=== PATIENT | male | born 1940 | race African-American/Black ===

== ENCOUNTER 2019-06-23 18:04 | Inpatient (IN) | payer MEDICARE, MEDICAID ==
[~2019-06-23] VITALS: Ht 172.7 cm; Wt 57.2 kg
[2019-06-23] MEDS ORDERED: SODIUM CHLORIDE 0.9% 1,000 ML IV ONE (18:27)
[2019-06-23 18:55] LABS: BASOPHILS % 0.3 % (0.0-2.0); EOSINOPHILS % 0.4 % (0.0-5.0); HEMATOCRIT. 38.6 % (42.0-52.0); HEMOGLOBIN. 12.5 g/dL (14.0-18.0); LYMPHOCYTES % 11.5 % (20.0-50.0); MEAN CORPUSCULAR VOLUME 79.8 fL (80.0-94.0); MEAN PLATELET VOLUME 7.6 fl (7.4-10.4); MONOCYTES % 8.8 % (2.0-8.0); PLATELET 284 x1000/uL (130-400); RED BLOOD CELL COUNT 4.83 mill/uL (4.7-6.1); RED CELL DISTRIBUTION WIDTH 19.3 % (11.6-14.6)
[2019-06-23 19:00] LABS: CHLORIDE 107 mEq/L (98-107)
[2019-06-23 19:01] LABS: PROTHROMBIN TIME 10.9 sec (9.6-11.0)
[2019-06-23 19:36] LABS: CLARITY URINE CLEAR (CLEAR); COLOR URINE YELLOW (YELLOW); KETONES URINE NEGATIVE (NEGATIVE); LEUKOCYTE ESTERASE URINE 1+ (NEGATIVE); NITRITE URINE NEGATIVE (NEGATIVE); OCCULT BLOOD URINE 3+ (NEGATIVE); PH URINE 5.5 (4.5-8.0); PROTEIN URINE 1+ (NEGATIVE); SPECIFIC GRAVITY URINE 1.014 (1.005-1.030); UROBILINOGEN URINE 0.2 E.U./dL (0.2-1.0)
[2019-06-23] MEDS ORDERED: CEFTRIAXONE 1 G PREMIX 50 ML IV ONE (20:00)
[2019-06-24] VITALS (7 sets, daily range): BP systolic 104–145; BP diastolic 70–85
[2019-06-24] MEDS: SODIUM CHLORIDE 0.45% 1,000 ML IV SCH (00:18)
[2019-06-24] MEDS ORDERED: HYDRALAZINE 20MG/ML VIAL IV PRN (00:30)
[2019-06-24] MEDS ORDERED: CEFTRIAXONE 1 G PREMIX 50 ML IV SCH (00:30)
[2019-06-24] MEDS ORDERED: ACETAMINOPHEN 325MG TABLET PO PRN (00:30)
[2019-06-24] MEDS ORDERED: IPRATROPIUM/ALBUTEROL 0.5-3(2.5)MG/3ML NEB HHN PRN (00:30)
[2019-06-24] MEDS ORDERED: HYDROCODONE/ACETAMINOPHEN 10/325MG TABLET PO PRN (00:30)
[2019-06-24] MEDS ORDERED: ONDANSETRON HCL 4MG/2ML INJ IV PRN (00:30)
[2019-06-24] MEDS ORDERED: LORAZEPAM 2MG/ML CPJ IV PRN (00:30)
[2019-06-24] MEDS ORDERED: MAGNESIUM/ALUMINUM HYDROXIDE/SIMETHICONE 30ML UDC PO PRN (00:30)
[2019-06-24] MEDS ORDERED: DIPHENHYDRAMINE 50MG/ML VIAL IV PRN (00:30)
[2019-06-24] MEDS ORDERED: DOCUSATE SODIUM 100MG CAPSULE PO PRN (00:30)
[2019-06-24 02:06] LABS: HEPATITIS B SURFACE ANTIGEN NEGATIVE
[2019-06-24] MEDS ORDERED: MORPHINE SULFATE 2 MG/ML CPJ (NOT FOR IM USE) IV PRN (06:17)
[2019-06-24] MEDS: SODIUM CHLORIDE 0.9% INJ 3ML FLUSH IVF SCH ×3 (06:45→21:54)
[2019-06-24] MEDS: ENOXAPARIN 40MG/0.4ML SYR SUBCUT SCH (09:00)
[2019-06-24 10:07] LABS: CREATINE KINASE MB FRACTION 4.2 ng/mL (0.5-3.6)
[2019-06-24 18:16] LABS: CREATINE KINASE MB FRACTION 3.2 ng/mL (0.5-3.6)
[2019-06-24] MEDS: CEFTRIAXONE 1 G PREMIX 50 ML IV SCH (21:54)
[2019-06-25] VITALS: BP 126/73
[2019-06-25 00:41] LABS: *AMPHETAMINES SCREEN URINE NEGATIVE (NEGATIVE); *BARBITURATES SCREEN URINE NEGATIVE (NEGATIVE); *BENZODIAZEPINES SCREEN URINE PRESUMTIVE POSITIVE (NEGATIVE)
[2019-06-25 00:42] LABS: *COCAINE SCREEN URINE NEGATIVE (NEGATIVE); CANNABINOID URINE SCREEN NEGATIVE (NEGATIVE); METHADONE URINE SCREEN NEGATIVE (NEGATIVE); PHENCYCLIDINE URINE SCREEN NEGATIVE (NEGATIVE)
[2019-06-25] MEDS: SODIUM CHLORIDE 0.45% 1,000 ML IV SCH (00:51)
[2019-06-25 04:00] VITALS: BP 126/74
[2019-06-25] MEDS: SODIUM CHLORIDE 0.9% INJ 3ML FLUSH IVF SCH ×3 (05:51→20:20)
[2019-06-25 07:18] LABS: BASOPHILS % 1.3 % (0.0-2.0); EOSINOPHILS % 3.4 % (0.0-5.0); HEMATOCRIT. 35.6 % (42.0-52.0); HEMOGLOBIN. 11.8 g/dL (14.0-18.0); LYMPHOCYTES % 24.3 % (20.0-50.0); MEAN CORPUSCULAR HEMOGLOBIN 26.4 pg (28.0-32.0); MEAN CORPUSCULAR VOLUME 79.4 fL (80.0-94.0); MONOCYTES % 11.5 % (2.0-8.0); NEUTROPHILS % 59.5 % (40.0-76.0); PLATELET 273 x1000/uL (130-400); RED BLOOD CELL COUNT 4.48 mill/uL (4.7-6.1); RED CELL DISTRIBUTION WIDTH 19.3 % (11.6-14.6)
[2019-06-25 07:34] LABS: CHLORIDE 109 mEq/L (98-107)
[2019-06-25 07:41] LABS: VITAMIN B12 SERUM 970 pg/mL (211-911)
[2019-06-25 08:00] VITALS: BP 155/77
[2019-06-25] MEDS: ENOXAPARIN 40MG/0.4ML SYR SUBCUT SCH (09:52)
[2019-06-25 12:00] VITALS: BP 151/72
[2019-06-25 16:00] VITALS: BP 136/73
[2019-06-25 20:00] VITALS: BP 144/68
[2019-06-25] MEDS: GUAIFENESIN 200MG/10ML SUGAR FREE UDC PO PRN ×2 (20:20→20:28)
[2019-06-25] MEDS: CEFTRIAXONE 1 G PREMIX 50 ML IV SCH (20:20)
[2019-06-26] VITALS (8 sets, daily range): BP systolic 119–179; BP diastolic 68–97
[2019-06-26] MEDS: CLONIDINE 0.1MG TABLET PO PRN ×3 (00:20→20:40)
[2019-06-26] MEDS: SODIUM CHLORIDE 0.9% INJ 3ML FLUSH IVF SCH ×3 (04:34→20:40)
[2019-06-26] MEDS: SODIUM CHLORIDE 0.45% 1,000 ML IV SCH (04:34)
[2019-06-26 05:30] LABS: BASOPHILS % 1.2 % (0.0-2.0); EOSINOPHILS % 3.4 % (0.0-5.0); HEMATOCRIT. 36.1 % (42.0-52.0); HEMOGLOBIN. 12.3 g/dL (14.0-18.0); LYMPHOCYTES % 20.3 % (20.0-50.0); MEAN CORPUSCULAR HEMOGLOBIN 27.1 pg (28.0-32.0); MEAN CORPUSCULAR VOLUME 79.3 fL (80.0-94.0); MEAN PLATELET VOLUME 8.1 fl (7.4-10.4); MONOCYTES % 11.2 % (2.0-8.0); NEUTROPHILS % 63.9 % (40.0-76.0); PLATELET 269 x1000/uL (130-400); RED BLOOD CELL COUNT 4.55 mill/uL (4.7-6.1); RED CELL DISTRIBUTION WIDTH 19.3 % (11.6-14.6)
[2019-06-26] MEDS: ENOXAPARIN 40MG/0.4ML SYR SUBCUT SCH (08:23)
[2019-06-26] MEDS: GUAIFENESIN 200MG/10ML SUGAR FREE UDC PO PRN (20:39)
[2019-06-26] MEDS: CEFTRIAXONE 1 G PREMIX 50 ML IV SCH (20:40)
[2019-06-26] MEDS: LORAZEPAM 1MG TABLET PO PRN (20:40)
[2019-06-27] VITALS: BP 116/74
[2019-06-27] MEDS: SODIUM CHLORIDE 0.45% 1,000 ML IV SCH (00:18)
[2019-06-27 04:00] VITALS: BP 146/73
[2019-06-27] MEDS: SODIUM CHLORIDE 0.9% INJ 3ML FLUSH IVF SCH ×2 (05:58→14:00)
[2019-06-27 08:00] VITALS: BP 128/90
[2019-06-27] MEDS: ENOXAPARIN 40MG/0.4ML SYR SUBCUT SCH (09:14)
[2019-06-27 12:00] VITALS: BP 111/78
[2019-06-27 16:00] VITALS: BP 115/52
[2019-06-27] MEDS: LORAZEPAM 1MG TABLET PO PRN (17:06)
[2019-06-27 20:00] VITALS: BP 152/75
[2019-06-28] VITALS: BP 130/64
[2019-06-28] MEDS: CEFTRIAXONE 1 G PREMIX 50 ML IV SCH ×2 (00:33→22:02)
[2019-06-28] MEDS: SODIUM CHLORIDE 0.9% INJ 3ML FLUSH IVF SCH ×4 (00:33→22:03)
[2019-06-28] MEDS: SODIUM CHLORIDE 0.45% 1,000 ML IV SCH (00:34)
[2019-06-28 08:00] VITALS: BP 131/78
[2019-06-28] MEDS: ENOXAPARIN 40MG/0.4ML SYR SUBCUT SCH (08:48)
[2019-06-28 09:12] LABS: OPIATES URINE SCREEN NEGATIVE (NEGATIVE)
[2019-06-28 12:00] VITALS: BP 128/84
[2019-06-28 16:00] VITALS: BP 147/78
[2019-06-28 20:00] VITALS: BP 139/78
[2019-06-29] VITALS: BP 138/72
[2019-06-29] MEDS: SODIUM CHLORIDE 0.45% 1,000 ML IV SCH (01:54)
[2019-06-29 04:00] VITALS: BP 147/68
[2019-06-29] MEDS: SODIUM CHLORIDE 0.9% INJ 3ML FLUSH IVF SCH (06:52)
[2019-06-29 08:00] VITALS: BP 138/72
[2019-06-29] MEDS: ENOXAPARIN 40MG/0.4ML SYR SUBCUT SCH (09:34)
[2019-06-29 12:00] VITALS: BP 126/55
[2019-06-29 13:15] VITALS: BP 126/55
== END 2019-06-29 14:10 | DRG 463 ==
LOC: EDBD 18:04 → ER 18:04 → EDBEDREQ 18:32 → 5WST 20:51 → EDBEDREQ 20:57 → EDBEDREQSVC 20:57 → EDBEDREQTM 20:57 → ENRESERV 06-24 03:51
PROVIDERS: ADMIT Internal Medicine; ATTEND Internal Medicine
DX: N39.0 Urinary tract infection, site not specified (principal); N17.0 Acute kidney failure with tubular necrosis; G93.40 Encephalopathy, unspecified; E86.0 Dehydration; E44.1 Mild protein-calorie malnutrition; F17.210 Nicotine dependence, cigarettes, uncomplicated; Z60.2 Problems related to living alone; I10 Essential (primary) hypertension; Z95.0 Presence of cardiac pacemaker; Z68.1 Body mass index [BMI] 19.9 or less, adult
CPT/HCPCS: 36415; 71045; 80048; 80053; 80061; 80305; 81003; 82550; 82553; 82607; 83036; 83880; 84439; 84443; 84484; 85025; 85379; 92610; 93005; 93306; 93970; 97116; 97162; 97166; 99285; J0360; J0696; J1200; J1650; J2060; J7030

== ENCOUNTER 2020-10-05 23:48 | Inpatient (IN) | payer MEDICARE, MEDICAID ==
[~2020-10-05] VITALS: Ht 177.8 cm; Wt 62.3 kg
[2020-10-06] VITALS (43 sets, daily range): BP systolic 118–184; BP diastolic 58–101
[2020-10-06] MEDS ORDERED: SODIUM CHLORIDE 0.9% 1,000 ML IV ONE ×2 (00:15→03:00)
[2020-10-06 00:54] LABS: CHLORIDE 111 mEq/L (98-107)
[2020-10-06 00:58] LABS: INR 1.1; PARTIAL THROMBOPLASTIN TIME 26.5 sec (23.4-31.0); PROTHROMBIN TIME 11.3 sec (9.6-11.0)
[2020-10-06 01:08] LABS: BASOPHILS % 0.9 % (0.0-2.0); EOSINOPHILS % 2.3 % (0.0-5.0); HEMATOCRIT. 36.5 % (42.0-52.0); HEMOGLOBIN. 11.4 g/dL (14.0-18.0); LYMPHOCYTES % 29.6 % (20.0-50.0); MEAN CORPUSCULAR HEMOGLOBIN 22.9 pg (28.0-32.0); MEAN CORPUSCULAR VOLUME 73.4 fL (80.0-94.0); MONOCYTES % 8.4 % (2.0-8.0); NEUTROPHILS % 58.8 % (40.0-76.0); PLATELET 215 x1000/uL (130-400); RED BLOOD CELL COUNT 4.98 mill/uL (4.7-6.1)
[2020-10-06 04:00] LABS: CLARITY URINE CLEAR (CLEAR); COLOR URINE YELLOW (YELLOW); KETONES URINE NEGATIVE (NEGATIVE); LEUKOCYTE ESTERASE URINE 1+ (NEGATIVE); NITRITE URINE NEGATIVE (NEGATIVE); OCCULT BLOOD URINE 2+ (NEGATIVE); PROTEIN URINE 1+ (NEGATIVE); SPECIFIC GRAVITY URINE 1.016 (1.005-1.030); UROBILINOGEN URINE 0.2 E.U./dL (0.2-1.0)
[2020-10-06] MEDS: DEXT 5%/0.45% NACL 1000ML 1,000 ML IV SCH (08:23)
[2020-10-06] MEDS ORDERED: ONDANSETRON HCL 4MG/2ML INJ IV PRN ×2 (09:00)
[2020-10-06] MEDS: PANTOPRAZOLE 80 MG in SODIUM CHLORIDE 0.9% 100 ML IV SCH ×2 (09:33→18:52)
[2020-10-06 12:34] LABS: HEMATOCRIT 33.5 % (42.0-52.0); HEMOGLOBIN 10.9 g/dL (14.0-18.0)
[2020-10-06] MEDS: HYDRALAZINE 20MG/ML VIAL IV PRN (18:53)
[2020-10-06] MEDS: TAMSULOSIN HCL 0.4MG SR CAPSULE PO SCH (18:53)
[2020-10-06 19:20] LABS: HEMOGLOBIN 10.8 g/dL (14.0-18.0)
[2020-10-06] MEDS: LORAZEPAM 2MG/ML CPJ IV PRN (22:53)
[2020-10-06] MEDS ORDERED: ENALAPRIL 2.5MG/2ML VIAL 2ML IV PRN (23:00)
[2020-10-07] VITALS (40 sets, daily range): BP systolic 114–172; BP diastolic 55–101
[2020-10-07] MEDS: DEXT 5%/0.45% NACL 1000ML 1,000 ML IV SCH ×3 (01:04→22:43)
[2020-10-07 01:16] LABS: HEMATOCRIT 29.7 % (42.0-52.0); HEMOGLOBIN 9.8 g/dL (14.0-18.0)
[2020-10-07] MEDS: HYDRALAZINE 20MG/ML VIAL IV PRN ×2 (01:36→19:35)
[2020-10-07 04:39] LABS: HEMATOCRIT 29.3 % (42.0-52.0); HEMOGLOBIN 9.7 g/dL (14.0-18.0)
[2020-10-07 04:42] LABS: TOTAL IRON BINDING CAPACITY 386 ug/dL (250-450)
[2020-10-07 04:52] LABS: FOLIC ACID (FOLATE) SERUM 14.5 ng/mL (>5.38)
[2020-10-07] MEDS: PANTOPRAZOLE 80 MG in SODIUM CHLORIDE 0.9% 100 ML IV SCH (06:00)
[2020-10-07] MEDS ORDERED: ENALAPRIL 1.25MG/ML VIAL 1ML IV PRN (07:42)
[2020-10-07] MEDS: TAMSULOSIN HCL 0.4MG SR CAPSULE PO SCH (09:29)
[2020-10-07 12:30] LABS: HEMATOCRIT 29.5 % (42.0-52.0); HEMOGLOBIN 9.6 g/dL (14.0-18.0)
[2020-10-07] MEDS: LORAZEPAM 2MG/ML CPJ IV PRN (12:46)
[2020-10-07 13:14] LABS: CHLORIDE 111 mEq/L (98-107)
[2020-10-07 13:18] LABS: BASOPHILS % 0.2 % (0.0-2.0); EOSINOPHILS % 0.4 % (0.0-5.0); HEMATOCRIT. 29.6 % (42.0-52.0); HEMOGLOBIN. 9.6 g/dL (14.0-18.0); LYMPHOCYTES % 8.6 % (20.0-50.0); MEAN CORPUSCULAR HEMOGLOBIN 24.8 pg (28.0-32.0); MEAN CORPUSCULAR VOLUME 76.7 fL (80.0-94.0); MEAN PLATELET VOLUME 9.1 fl (7.4-10.4); MONOCYTES % 7.7 % (2.0-8.0); NEUTROPHILS % 83.1 % (40.0-76.0); PLATELET 147 x1000/uL (130-400); RED BLOOD CELL COUNT 3.86 mill/uL (4.7-6.1); RED CELL DISTRIBUTION WIDTH 20.3 % (11.6-14.6)
[2020-10-07] MEDS: BISACODYL 5MG TABLET PO SCH ×3 (15:09→22:10)
[2020-10-07] MEDS: METOCLOPRAMIDE HCL 10MG/2ML VIAL IV SCH ×3 (15:09→22:10)
[2020-10-07] MEDS: SORBITOL 70% SOLN 30ML PO SCH ×3 (15:12→22:47)
[2020-10-07 18:21] LABS: HEMATOCRIT 28.4 % (42.0-52.0); HEMOGLOBIN 9.4 g/dL (14.0-18.0)
[2020-10-08 00:29] LABS: HEMATOCRIT 31.3 % (42.0-52.0)
[2020-10-08] MEDS: METOCLOPRAMIDE HCL 10MG/2ML VIAL IV SCH (02:47)
[2020-10-08] MEDS: BISACODYL 5MG TABLET PO SCH (02:47)
[2020-10-08] MEDS: SORBITOL 70% SOLN 30ML PO SCH ×2 (03:00→05:13)
[2020-10-08] MEDS ORDERED: SORBITOL 70% SOLN 30ML PO SCH (05:15)
[2020-10-08 06:35] LABS: BASOPHILS % 0.2 % (0.0-2.0); EOSINOPHILS % 0.3 % (0.0-5.0); HEMATOCRIT. 32.3 % (42.0-52.0); HEMOGLOBIN. 10.4 g/dL (14.0-18.0); MEAN CORPUSCULAR HEMOGLOBIN 25.3 pg (28.0-32.0); MEAN CORPUSCULAR VOLUME 78.8 fL (80.0-94.0); MEAN PLATELET VOLUME 9.2 fl (7.4-10.4); MONOCYTES % 7.9 % (2.0-8.0); NEUTROPHILS % 82.6 % (40.0-76.0); PLATELET 171 x1000/uL (130-400); RED CELL DISTRIBUTION WIDTH 20.2 % (11.6-14.6)
[2020-10-08 06:55] LABS: INR 1.1; PROTHROMBIN TIME 11.3 sec (9.6-11.0)
[2020-10-08] MEDS ORDERED: BISACODYL 5MG TABLET PO NR (07:15)
[2020-10-08] MEDS ORDERED: METOCLOPRAMIDE HCL 10MG/2ML VIAL IV NR (07:20)
[2020-10-08] MEDS ORDERED: SORBITOL 70% SOLN 30ML PO NR (07:20)
[2020-10-08 08:00] VITALS: BP 126/73
[2020-10-08] MEDS: TAMSULOSIN HCL 0.4MG SR CAPSULE PO SCH (08:04)
[2020-10-08 12:00] VITALS: BP 148/76
[2020-10-08 12:20] LABS: HEMATOCRIT 32.8 % (42.0-52.0)
[2020-10-08 16:00] VITALS: BP 146/82
[2020-10-08 20:00] VITALS: BP 151/79
[2020-10-08 21:42] LABS: HEMATOCRIT 32.2 % (42.0-52.0); HEMOGLOBIN 10.5 g/dL (14.0-18.0)
[2020-10-09] VITALS: BP 145/72
[2020-10-09 01:01] LABS: HEMATOCRIT 31.8 % (42.0-52.0); HEMOGLOBIN 10.3 g/dL (14.0-18.0)
[2020-10-09] MEDS: LORAZEPAM 2MG/ML CPJ IV PRN ×2 (01:24→09:24)
[2020-10-09 04:00] VITALS: BP 142/64
[2020-10-09] MEDS: DEXT 5%/0.45% NACL 1000ML 1,000 ML IV SCH ×2 (06:33→17:50)
[2020-10-09 08:00] VITALS: BP 124/77
[2020-10-09] MEDS: TAMSULOSIN HCL 0.4MG SR CAPSULE PO SCH (09:24)
[2020-10-09 10:17] LABS: HEMATOCRIT 28.8 % (42.0-52.0); HEMOGLOBIN 9.6 g/dL (14.0-18.0)
[2020-10-09] MEDS ORDERED: BACTERIOSTATIC SODIUM CHLORIDE 0.9% 30ML VIAL IJ ONE (11:00)
[2020-10-09] MEDS ORDERED: MIDAZOLAM HCL 5 MG/5 ML VIAL ONE (12:58)
[2020-10-09] MEDS ORDERED: FENTANYL CITRATE/PF 50MCG/ML 2ML VIAL ONE (12:58)
[2020-10-09] MEDS ORDERED: MIDAZOLAM HCL 5 MG/5 ML VIAL IV PRN (12:59)
[2020-10-09] MEDS ORDERED: FENTANYL CITRATE/PF 50MCG/ML 2ML VIAL IV PRN (13:05)
[2020-10-09] MEDS ORDERED: DIPHENHYDRAMINE 50MG/ML VIAL IV PRN (13:09)
[2020-10-09] MEDS ORDERED: DIPHENHYDRAMINE 50MG/ML VIAL ONE ×2 (13:16→13:39)
[2020-10-09 16:00] VITALS: BP 132/62
[2020-10-09 20:00] VITALS: BP 128/57
[2020-10-09 20:47] LABS: HEMATOCRIT 29.9 % (42.0-52.0); HEMOGLOBIN 9.6 g/dL (14.0-18.0)
[2020-10-09] MEDS ORDERED: TAMS-11 PO (21:09)
[2020-10-09] MEDS ORDERED: PANT40SU MT (21:09)
[2020-10-10] VITALS: BP 139/60
[2020-10-10 00:27] VITALS: BP 139/60
[2020-10-10 00:42] LABS: HEMATOCRIT 29.5 % (42.0-52.0); HEMOGLOBIN 9.5 g/dL (14.0-18.0)
[2020-10-10] MEDS: LORAZEPAM 2MG/ML CPJ IV PRN (02:13)
[2020-10-10 04:00] VITALS: BP 157/76
[2020-10-10 07:26] LABS: HEMATOCRIT 26.5 % (42.0-52.0)
[2020-10-10 08:00] VITALS: BP 131/60
[2020-10-10] MEDS: TAMSULOSIN HCL 0.4MG SR CAPSULE PO SCH (08:21)
[2020-10-10 12:00] VITALS: BP 120/72
[2020-10-10 13:09] VITALS: BP 120/72
== END 2020-10-10 15:20 | disposition home health service (06) | DRG 241 ==
LOC: ER 23:48 → MICUSO 10-06 03:04 → EDBEDREQTM 10-06 03:05 → EDBEDREQSVC 10-06 03:05 → ENRESERV 10-06 04:47 → 6WST 10-07 21:15
PROVIDERS: ADMIT Family Medicine; ATTEND Family Medicine
PROC: 30233N1 Transfusion of Nonautologous Red Blood Cells into Peripheral Vein, Percutaneous Approach (ICD-10-PCS; 2020-10-06)
PROC: 0DB78ZX Excision of Stomach, Pylorus, Via Natural or Artificial Opening Endoscopic, Diagnostic (ICD-10-PCS; principal; 2020-10-09)
PROC: 0DJD8ZZ Inspection of Lower Intestinal Tract, Via Natural or Artificial Opening Endoscopic (ICD-10-PCS; 2020-10-09)
DX: K29.01 Acute gastritis with bleeding (principal); N17.0 Acute kidney failure with tubular necrosis; G93.40 Encephalopathy, unspecified; K57.31 Diverticulosis of large intestine without perforation or abscess with bleeding; E88.09 Other disorders of plasma-protein metabolism, not elsewhere classified; D62 Acute posthemorrhagic anemia; G90.8 Other disorders of autonomic nervous system; F03.90 Unspecified dementia, unspecified severity, without behavioral disturbance, psychotic disturbance, mood disturbance, and anxiety; D50.9 Iron deficiency anemia, unspecified; I12.9 Hypertensive chronic kidney disease with stage 1 through stage 4 chronic kidney disease, or unspecified chronic kidney disease; N18.9 Chronic kidney disease, unspecified; Z20.822 Contact with and (suspected) exposure to COVID-19; R73.9 Hyperglycemia, unspecified; N32.89 Other specified disorders of bladder; K44.9 Diaphragmatic hernia without obstruction or gangrene; Z85.038 Personal history of other malignant neoplasm of large intestine; Z95.0 Presence of cardiac pacemaker; Z85.819 Personal history of malignant neoplasm of unspecified site of lip, oral cavity, and pharynx
CPT/HCPCS: 36415; 71045; 74176; 78278; 80048; 80053; 81003; 82270; 82607; 82728; 82746; 83540; 83550; 83880; 84484; 85014; 85018; 85025; 85044; 86850; 86900; 86920; 87015; 87045; 87426; 87427; 87449; 87493; 88305; 88312; 88313; 89055; 93005; 99291; A9560; C9113; J0360; J1200; J2060; J2250; J2765; J3010; J3490; J7030; J7040; J7050; P9016; A4315